=== PATIENT | male | born 1980 | race Caucasian/White ===

== ENCOUNTER → 2016-08-05 | Outpatient (CLI) | payer OTHER ==
[2016-08-05 07:56] LABS: CALCIUM 9.4 mg/dL (8.5-10.1); CREATININE 1.3 mg/dL (0.7-1.3); GFR 61.8; POTASSIUM 4.4 mmol/L (3.5-5.1)
[2016-08-05 07:59] LABS: BASO # 0.1 x10^3/uL (0.0-0.2); BASO % 1 % (0-3); EOS # 0.1 x10^3/uL (0.0-0.7); EOS % 2 % (0-3); LYMPH # 2.1 x10^3/uL (1.0-4.8); LYMPH % 30 % (24-48); MEAN CORPUSCULAR HEMOGLOBIN 33 pg (25-35); MEAN CORPUSCULAR HGB CONC 35 g/dL (31-37); MEAN CORPUSCULAR VOLUME 95 fL (79-100); MONO # 0.5 x10^3/uL (0.0-1.1); MONO % 7 % (0-9); NEUT # 4.1 x10^3uL (1.8-7.7); NEUT % 60 % (31-73); PLATELET COUNT 185 x10^3/uL (140-400); RED BLOOD COUNT 4.83 x10^6/uL (4.30-5.70); RED CELL DISTRIBUTION WIDTH 13.4 % (11.5-14.5); WHITE BLOOD COUNT 6.8 x10^3/uL (4.0-11.0)
[2016-08-05] MEDS: IOHEXOL 300 MG/ML 75 ML VIAL. IV ONE (08:05)
--- NOTE | 2016-08-05 09:27 | RAD ---
CT of the abdomen and pelvis with and without contrast, (CT urography), 08/05/2016: History: Chronic renal calculi, gross hematuria Imaging of the urinary tract was performed prior to and following an IV bolus injection of iodinated contrast material. The postcontrast scans were obtained through the kidneys in the nephrographic phase and through the entire urinary tract in an excretory phase. 3-D MIP reconstructions were performed utilizing the excretory phase data. There is a 7 mm calculus in the upper pole of the right kidney. No other intrarenal calculi are identified. The right renal collecting system and ureter are unremarkable. There is a 7 x 4 mm calculus lodged in the distal left ureter near the ureterovesical junction. There is only slight dilatation of the ureter superior to this level. The left renal collecting system is not dilated. The partially filled urinary bladder is unremarkable. Numerous additional pelvic calcifications represent phleboliths as well as several prostatic calcifications. There are several small low-density lesions in both kidneys. The largest of these lie in the lower poles of both kidneys and both measure proximally 14 mm. These are smooth with low internal densities compatible with simple cysts. There is a cluster of 2 additional small cysts or a septated cyst in the posterior aspect of the left mid kidney. Several other tiny subcentimeter hypoechoic areas in both kidneys are too small to definitively characterize but are probably cysts. The right hemidiaphragm is elevated. There is mild streaky atelectasis or scarring in the right lung base. No hepatic mass or bile duct dilatation is seen. The gallbladder is unremarkable. No pancreatic abnormality is detected. The spleen is of normal size. The aorta is of normal caliber. No abdominal or pelvic adenopathy is seen. The prostate gland is of normal size. The bowel loops are not dilated. The appendix is unremarkable. No free fluid is evident in the abdomen or pelvis. There is mild dilatation of the left inguinal ring containing only fat and spermatic cord vessels. No bowel herniation is evident. IMPRESSION: 1. Small nonobstructing right intrarenal calculus. 2. Small distal left ureteral calculus with minimal if any associated obstructive change in the left ureter. 3. Small bilateral renal cysts. 4. Moderate elevation of the right hemidiaphragm. PQRS Compliance Statement: One or more of the following individualized dose reduction techniques were utilized for this examination: 1. Automated exposure control 2. Adjustment of the mA and/or kV according to patient size 3. Use of iterative reconstruction technique
== END | disposition home or self-care (01) ==
LOC: CT 07:04
PROVIDERS: ATTEND Urology
DX: N20.2 Calculus of kidney with calculus of ureter (principal); N28.1 Cyst of kidney, acquired; J98.4 Other disorders of lung; R31.0 Gross hematuria
CPT/HCPCS: 36415; 74178; 80048; 85027; Q9967